=== PATIENT | male | born 1960 | race Caucasian/White ===

== ENCOUNTER 2019-06-13 11:42 | Inpatient (IN) ==
--- NOTE | 2019-06-07 08:29 | EKG Report ---
Test Performed on : 06/07/2019 07:58:41 AM Test Reason : PAT Blood Pressure : / mmHG Vent. Rate : 063 BPM Atrial Rate : 063 BPM P-R Int : 168 ms QRS Dur : 090 ms QT Int : 412 ms P-R-T Axes : 056 016 034 degrees QTc Int : 421 ms Normal sinus rhythm. Normal ECG When compared with ECG of 21-DEC-2017 08:14, QT has shortened Confirmed by Bj De Jesus MD ([id number]) on 06/08/2019 12:59:20 PM
[2019-06-07 09:01] LABS: URINE SOURCE CLEAN CATCH
[2019-06-07 09:08] LABS: BASO# 0.04 X1000 (0.0-0.2); BASO% 0.4 % (0.0-0.8); EOS# 0.25 X1000 (0.0-0.7); EOS% 2.6 % (0.0-10.0); HEMATOCRIT 45.6 % (42.0-52.0); HEMOGLOBIN 15.2 g/dL (14.0-18.0); IMM GRAN# 0.02 X1000 (0.0-0.04); IMM GRAN% 0.2 % (0.0-0.5); LYMPH# 3.19 X1000 (1.2-3.4); LYMPH% 33.8 % (20.5-51.1); MCH 29.6 PG (27-31); MCHC 33.3 g/dL (33-37); MCV 88.7 FL (81-99); MONO# 0.93 X1000 (0.11-0.59); MONO% 9.8 % (1.7-9.3); MPV 10.7 FL (7.4-10.4); NEUT# 5.02 X1000 (1.4-6.5); NEUT% 53.2 % (42.2-75.2); PLT 291 X1000 (130-400); RBC 5.14 XMIL (4.7-6.1); RDW 13.5 % (11.5-14.5); WBC 9.45 X1000 (4.8-10.8)
[2019-06-07 09:10] LABS: BILIRUBIN URINE NEGATIVE (NEGATIVE); BLOOD URINE NEGATIVE (NEGATIVE); COLOR YELLOW; GLUCOSE URINE >1000 mg/dL (NEGATIVE); KETONE URINE NEGATIVE (NEGATIVE); LEUKOCYTES URINE NEGATIVE (NEGATIVE); NITRITE URINE NEGATIVE (NEGATIVE); PH URINE 5.5; PROTEIN URINE NEGATIVE (NEGATIVE); SP GRAVITY URINE 1.033; TURBIDITY URINE CLEAR (CLEAR); UROBILINOGEN URINE NORMAL (NORMAL)
[2019-06-07 09:12] LABS: UR EPITHELIAL CELLS <10 /HPF (<10); URINE BACTERIA NEGATIVE /HPF; URINE RBC <10 /HPF (<10); URINE WBC <10 /HPF (<10)
[2019-06-07 09:18] LABS: HEMOGLOBIN A1C 7.1 % (4.8-6.0)
[2019-06-07 09:25] LABS: INR 1.03; PROTIME 13.6 Seconds (11.0-16.0)
[2019-06-07 09:26] LABS: PTT 28.3 Seconds (22.3-41.8)
[2019-06-07 09:27] LABS: AGAP 12; BUN 17 mg/dL (8-22); CALCIUM 9.4 mg/dL (8.8-10.2); CHLORIDE 103 mmol/L (98-107); COSMO 286; CREATININE 1.1 mg/dL (0.7-1.2); ESTIMATED GFR > 60; GLUCOSE 165 mg/dL (70-104); SODIUM 141 mmol/L (136-145); TCO2 26 mmol/L (25-35)
[2019-06-13] MEDS ORDERED: COLACE ONE (12:07)
[2019-06-13] MEDS ORDERED: CELEBREX ONE (12:07)
[2019-06-13] MEDS ORDERED: PEPCID ONE (12:07)
[2019-06-13] MEDS ORDERED: LYRICA ONE (12:07)
[2019-06-13] MEDS ORDERED: REGLAN ONE (12:07)
[2019-06-13] MEDS ORDERED: LR 1,000 ML ONE (12:08)
[2019-06-13] MEDS ORDERED: KEFZOL 1 GM/D5W 2 GM/100 ML IVPB ONE (12:08)
[2019-06-13] MEDS ORDERED: DIPRIVAN 1% ONE ×3 (12:19→14:51)
[2019-06-13] MEDS ORDERED: VERSED ONE (12:22)
[2019-06-13] MEDS ORDERED: MARCAINE 0.25% PF ONE (12:25)
[2019-06-13] MEDS ORDERED: TORADOL ONE (12:25)
[2019-06-13] MEDS ORDERED: DURAMORPH ONE (12:25)
[2019-06-13] MEDS ORDERED: VANCOMYCIN ONE (12:25)
[2019-06-13] MEDS ORDERED: CYKLOKAPRON 1,000 MG/NS 1,000 MG/100 ML IVPB ONE ×2 (12:26→12:27)
[2019-06-13] MEDS ORDERED: NEOSPORIN G.U. IRRIGANT ONE (12:26)
[2019-06-13] MEDS ORDERED: SODIUM CHLORIDE 0.9% ONE (12:26)
[2019-06-13] MEDS ORDERED: EXPAREL 1.3% ONE (12:26)
[2019-06-13] MEDS ORDERED: FENTANYL ONE (13:20)
[2019-06-13] MEDS ORDERED: ZOFRAN ONE (14:05)
[2019-06-13] MEDS ORDERED: OFIRMEV 1000 MG/ISOTONIC SOLN 1,000 MG/100 ML BOTTLE ONE (14:05)
[2019-06-13 14:18] LABS: URINE SOURCE CATH
[2019-06-13 14:26] LABS: BILIRUBIN URINE NEGATIVE (NEGATIVE); BLOOD URINE NEGATIVE (NEGATIVE); COLOR YELLOW; GLUCOSE URINE >1000 mg/dL (NEGATIVE); KETONE URINE NEGATIVE (NEGATIVE); LEUKOCYTES URINE NEGATIVE (NEGATIVE); NITRITE URINE NEGATIVE (NEGATIVE); PROTEIN URINE NEGATIVE (NEGATIVE); SP GRAVITY URINE 1.027; TURBIDITY URINE CLEAR (CLEAR); UROBILINOGEN URINE NORMAL (NORMAL)
[2019-06-13 14:29] LABS: UR EPITHELIAL CELLS <10 /HPF (<10); URINE BACTERIA NEGATIVE /HPF; URINE RBC <10 /HPF (<10); URINE WBC <10 /HPF (<10)
[2019-06-13] MEDS ORDERED: NS 1,000 ML ONE (15:15)
--- NOTE | 2019-06-13 15:44 | OPERATIVE NOTE ---
PROCEDURE DATE: 06/13/2019 PREOPERATIVE DIAGNOSIS: Degenerative joint disease, left knee. POSTOP DIAGNOSIS: Degenerative joint disease, left knee. PROCEDURE: Left total knee replacement. SURGEON: Gerard Rodrigez MD. CODING DIRECTOR: LUIS FERNANDO Nguyen. Mr. Davis was necessary for proper retraction and manipulation of the knee. ANESTHESIA: Spinal. COMPLICATION: None. PROCEDURE IN DETAIL: 58-year-old male presents for left total knee replacement. Risks, benefits, and no guarantees were discussed and he is willing to proceed. He was taken to the operating room and satisfactory anesthesia obtained. The left knee was prepped and draped in usual sterile fashion. A time-out was taken to confirm operative site, procedure, and patient. The leg was wrapped with an Esmarch and tourniquet inflated to 350 mmHg. A midline incision was made over the front of the knee followed by a quad tendon sparing arthrotomy. The patella was everted and resurfaced with freehand technique. It was subluxed laterally and the knee flexed. Intramedullary hole made in the distal femur and the distal femoral cutting block secured with 5 degrees of valgus. Distal femoral resection was made and the femur sized to a size 8 DePuy Attune femoral implant. The 4-in-1 block was secured and the anterior, posterior, and chamfer cuts sequentially made. The notch was created for posterior stabilized design. Any remaining osteophytes were debrided from the femur. The knee was flexed and PCL retractor placed behind the tibia to protect the neurovascular bundle. Tibial cutting block was secured and the tibial resection made. Flexion-extension gaps were equal at roughly 12 to 14 mm. The tibia was sized to a size 8 tibial tray. A trial reduction was performed with a size 8 tibial tray, an 8 posterior stabilized femoral component for left knee and 12 to 14 mm thick polys. The best stability was noted with a 14 mm thick poly with full extension. The patella was sized to a 41 medialized dome patella. The drill holes were placed for the patella and femoral implants and trial components removed. The bony surfaces were thoroughly irrigated with pulsatile lavage and then dried. Cement with a gram of vancomycin was then utilized to cement a DePuy size 8 rotating platform tibial base plate, a right size 8 posterior stabilized femoral component and a 41 medialized dome patella onto the knee. While the cement cured, excess cement was removed with a [place] elevator. The joint capsule was then injected with Exparel for pain management and a Hemovac drain placed. After curing the cement, a size 8 14 mm thick posterior stabilized polyethylene bearing was inserted into the knee and the knee reduced. Final range of motion was 0 to 130 degrees with midline patellar tracking. The arthrotomy was copiously irrigated and then closed over the drain with #1 Vicryl in the arthrotomy, 2-0 Vicryl in the subcutaneous and skin juvencio on the skin edges. Sterile dressings completed the closure and the patient was recovered from anesthesia and transferred to the recovery room in stable condition. No intraoperative complications were noted. Instrument count and sponge count was correct at the time of closure. cc: Hermes Rodrigez MD
--- NOTE | 2019-06-13 15:44 | Diag Imaging Result Doc PS360 ---
EXAM: KNEE 1-2 VIEWS-LEFT HISTORY: L TKA TECHNIQUE: Left knee two views COMPARISON: 04/19/2015 FINDINGS: Recent orthopedic replacement of the knee. There are anterior skin juvencio and a superior surgical drain. No fracture. No dislocation. IMPRESSION: Good alignment to the femoral and tibial components following replacement of the left knee. Electronically signed by Shaggy Bey 06/13/2019 3:41 PM
--- NOTE | 2019-06-13 16:27 | ORTHOPAEDICS PROGRESS NOTE ---
DATE: 06/13/2019 SUBJECTIVE DATA: Mr. Calzada is seen on postop day 0 of his left total knee arthroplasty. He states he does have some decreased sensation in the left lower extremity at this time. He states he is still somewhat sleepy from the anesthesia. OBJECTIVE DATA: The bandages are clean, dry to the left lower extremity. There is negative Homans sign. Patient will move his toes without difficulty. There is some slightly decreased sensation still from the anesthesia. There is good capillary refill in toes. Vital signs are stable. ASSESSMENT: Degenerative joint disease, left knee, with left total knee arthroplasty. PLAN: I will plan on keeping Mr. Calzada overnight. We will check back on him in the morning and see how he is doing. Dictated by LUIS FERNANDO Nguyen for Hermes Rodrigez MD cc: LUIS FERNANDO Nguyen MD
[2019-06-13] MEDS ORDERED: ZOFRAN ODT PO PRN (16:30)
[2019-06-13] MEDS ORDERED: NS 1,000 ML IV SCH (16:30)
[2019-06-13] MEDS ORDERED: ZOFRAN IV PRN (16:30)
[2019-06-13] MEDS ORDERED: MORPHINE IV PRN ×3 (16:30)
[2019-06-13] MEDS ORDERED: FLONASE NAS PRN (18:34)
[2019-06-13] MEDS: OXY IR PO PRN ×2 (18:59→22:25)
[2019-06-13] MEDS ORDERED: ULORIC PO SCH (21:00)
[2019-06-13] MEDS ORDERED: NON-FORMULARY MED PO SCH (21:00)
[2019-06-13] MEDS ORDERED: COZAAR PO SCH (21:00)
[2019-06-13] MEDS: COLACE PO SCH (21:03)
[2019-06-13] MEDS: PERIDEX MT SCH (21:03)
[2019-06-13] MEDS: CELEBREX PO SCH (21:03)
[2019-06-13] MEDS: TYLENOL PO SCH (21:04)
[2019-06-13] MEDS: LOPRESSOR PO SCH (21:04)
[2019-06-13] MEDS: ULTRAM PO SCH (21:05)
[2019-06-13] MEDS: KEFZOL 2 GM/D5W 2 GM/50 ML IVPB IV SCH (21:06)
[2019-06-14] MEDS: OXY IR PO PRN ×5 (01:24→13:33)
[2019-06-14] MEDS: ULTRAM PO SCH ×2 (03:35→09:01)
[2019-06-14] MEDS: TYLENOL PO SCH ×2 (03:36→09:02)
[2019-06-14] MEDS: KEFZOL 2 GM/D5W 2 GM/50 ML IVPB IV SCH (05:35)
[2019-06-14 05:52] LABS: HEMATOCRIT 40.1 % (42.0-52.0); HEMOGLOBIN 13.2 g/dL (14.0-18.0)
[2019-06-14 06:05] LABS: AGAP 10; BUN 20 mg/dL (8-22); CHLORIDE 105 mmol/L (98-107); COSMO 284; ESTIMATED GFR > 60; GLUCOSE 171 mg/dL (70-104); POTASSIUM 4.6 mmol/L (3.5-5.1); SODIUM 139 mmol/L (136-145); TCO2 24 mmol/L (25-35)
--- NOTE | 2019-06-14 07:35 | ORTHOPAEDICS PROGRESS NOTE ---
DATE: 06/14/2019 Mr. Calzada is seen status post total knee replacement. At the present time, he is afebrile with stable vital signs. He can be discharged home today after physical therapy. We will see him back in roughly 2 weeks. He is to receive outpatient therapy. We are placing him on aspirin daily for DVT prophylaxis, and [place] as needed for pain. He can return in the interim for any worsening signs or symptoms. cc: Hermes Rodrigez MD
[2019-06-14] MEDS ORDERED: PEPCID PO SCH (09:00)
[2019-06-14] MEDS ORDERED: PATIENT'S OWN MED PO SCH (09:00)
[2019-06-14] MEDS ORDERED: ASPIRIN PO SCH (09:00)
[2019-06-14] MEDS: PERIDEX MT SCH (09:01)
[2019-06-14] MEDS: COLACE PO SCH (09:03)
[2019-06-14] MEDS: CELEBREX PO SCH (09:03)
[2019-06-14 12:18] VITALS: BP 115/63
[2019-06-14] MEDS: LOPRESSOR PO SCH (14:22)
== END 2019-06-14 14:28 | disposition home or self-care (01) | DRG 470 ==
LOC: 4N 11:42 → OR 11:42 → OBSVTOIN 15:49
PROVIDERS: ADMIT Orthopaedic Surgery Adult Reconstructive Orthopaedic Surgery; ATTEND Orthopaedic Surgery Adult Reconstructive Orthopaedic Surgery